=== PATIENT | male | born 1960 | race Caucasian/White ===

== ENCOUNTER 2018-05-26 16:08 | Outpatient (RCR) | payer OTHER, BC ==
--- NOTE | 2018-02-28 17:58 | PT INITIAL EVALUATION ---
MEDICAL DIAGNOSIS: Left TKA TREATMENT DIAGNOSIS: Left TKA, Lower Extremity Weakness, Abnormality of Gait DATE OF ONSET: 02/25/18 SUBJECTIVE: Yang is a 57 year old male presenting to physical therapy following left knee TKA on January,. Since the surgery pt reports feeling slowly better every day with pain improving. Pt uses CMP machine at home currently set to 6-0-80 with the goal to get to 10-0-90. Pt reports no fever or chills and has been icing his knee regularly. Pt would like to get back to recreational skiing, but has restrictions from his R knee which will likely need a TKA later on. REHAB PROBLEM LIST: Increased Pain Decreased ROM Impaired Bed Mobility Decreased Strength Impaired Transfers Decreased Endurance Decreased Balance Decreased Function Decreased ADL's Decreased Mobility Decreased Gait PREVIOUS MEDICAL HISTORY: See EMR OCCUPATION: Works at a bank. OBJECTIVE: Pt has post surgical dressing on with bandages covering sutures and gauze wrapped around knee. Pt is wearing B compression stockings at thigh high level. ROM: Knee ROM: R 0-5-130, L 0-20-70 Strength: LE MMT (R, L): Hip: flexion: 5/5, 3+/5, ext: 4+/5, 4-/5, abd: 5/5, 4- /5, add: 5/5, 4-/5. Knee: ext: 4/5, L not tested, flex: 5/5, L not tested. Ankle: DF: 5/5, 4+/5, PF: 5/5, 4-/5 Palpation: Incision not inspected at this time, but will be performed by PT at a later time. Special Tests: Pt unable to perform SLR. Gait: Pt ambulates with FWW with decreased stance phase on L LE and shortened stride with forward trunk lean. ASSESSMENT: Yang shows signs and symptoms consistent with recent L TKA. Physical therapy is indicated to address the above listed impairments to return pt to full function with ADL's and recreational activities. Short Term Goals In 3 weeks pt will increase L Knee ROM to 0-130 for improved functional mobility with ADL's. In 4 weeks pt will be able to perform a SLR on the L LE without quad lag for improved function with ADL's. In 6 weeks pt will increase L LE ROM to equal to that of the R for improved function with ADL's. In 6 weeks pt will be able to return to recreational activities such as skiing for without limitations from the L knee. Patient's Goals Get back to skiing, increase strength and gain ROM PLAN: Patient to be seen for Manual Therapy/STM/MET Strengthening/condition Ice/Heat Range of Motion Spinal Stabilization Ultrasound Stretching Iontophoresis Neuromuscular Re-ed Closed Chain Program Electrical Stim Posture/Body mechanics Gait Trg/Balance Trg Biofeedback Home Exercise Program Mech./Manual Traction Therapeutic Activities 3x/Week for 6 Weeks If you have any questions, comments, or concerns about this report or plan, please contact me at . Thank you, Gail Castellon, PT, DPT, CLT MTDD
--- NOTE | 2018-03-30 17:44 | PT PLAN OF CARE ---
Physician: Joe Batres MD Patient is being seen: 3x/Week Therapist: Gail Castellon, PT, DPT, CLT Medical Diagnosis: Left TKA Treatment Diagnosis: Left TKA, Lower Extremity Weakness, Abnormality of Gait Date of Onset: 02/25/18 Date of Initial Evaluation: 02/28/18 Date patient was last seen: 03/30/18 Number of treatments: 13 Number of cancellations/No shows: 1 INTERVENTIONS: Manual Therapy/STM/MET Strengthening/condition Ice/Heat Range of Motion Spinal Stabilization Ultrasound Stretching Iontophoresis Neuromuscular Re-ed Closed Chain Program Electrical Stim Posture/Body mechanics Gait Trg/Balance Trg Biofeedback Home Exercise Program Mech./Manual Traction Therapeutic Activities GOALS: In 3 weeks pt will increase L Knee ROM to 0-130 for improved functional mobility with ADL's. In 4 weeks pt will be able to perform a SLR on the L LE without quad lag for improved function with ADL's. In 6 weeks pt will increase L LE ROM to equal to that of the R for improved function with ADL's. In 6 weeks pt will be able to return to recreational activities such as skiing for without limitations from the L knee. PATIENT'S GOAL: Get back to skiing, increase strength and gain ROM Status of Patient's Goals: Not MET Patient Compliance: Poor Prognosis: Good Reasons for continuing therapy: At this time Yang shows little gains in knee ROM with loss of motion between each session secondary to poor compliance with HEP. PT continues to provide education on the importance of achieving ROM with little improvement over the last week. Multiple techniques for pt achieving end range were discussed, and demonstrated, with pt sent home with written instructions and pictures for the ones of his preference. It is my impression that if Yang does not take more initiative for gaining or maintaining ROM between sessions he will require manipulation under anesthesia in order to achieve functional mobility. Despite difficulty with mobility, pt does show improved muscular activation with improved hip and quad strength and stability. Pt remains ambulating on 2 crutches at this time secondary to lingering inflammation from decreased knee mobility. Further PT is indicated for this patient to continue progress towards functional goals. ROM: Knee ROM: R 0-5-130, L 0-3-105 Strength: LE MMT (R, L): Hip: flexion: 5/5, 4-/5, ext: 4+/5, 4-/5, abd: 5/5, 4- /5, add: 5/5, 4-/5. Knee: ext: 4/5, L not tested, flex: 5/5, L not tested. Ankle: DF: 5/5, 4+/5, PF: 5/5, 4-/5 Palpation: Incision not inspected at this time but will be at a later time. Special Tests: Pt is able to perform SLR with minimal quad lag. If you have any questions, please feel free to contact me at [phone]. Thank you, Gail Castellon, PT, DPT, CLT MTDD
--- NOTE | 2018-04-20 09:49 | PT PLAN OF CARE ---
Physician: Joe Batres MD Patient is being seen: 5x/Week Therapist: Gail Castellon, PT, DPT, CLT Medical Diagnosis: Left TKA Treatment Diagnosis: Left TKA, Lower Extremity Weakness, Abnormality of Gait Date of Onset: 02/25/18 Date of Initial Evaluation: 02/28/18 Date patient was last seen: 04/19/18 Number of treatments: 20 Number of cancellations/No shows: 1 INTERVENTIONS: Manual Therapy/STM/MET Strengthening/condition Ice/Heat Range of Motion Spinal Stabilization Ultrasound Stretching Iontophoresis Neuromuscular Re-ed Closed Chain Program Electrical Stim Posture/Body mechanics Gait Trg/Balance Trg Biofeedback Home Exercise Program Mech./Manual Traction Therapeutic Activities GOALS: In 3 weeks pt will increase L Knee ROM to 0-130 for improved functional mobility with ADL's. In 4 weeks pt will be able to perform a SLR on the L LE without quad lag for improved function with ADL's. In 6 weeks pt will increase L LE ROM to equal to that of the R for improved function with ADL's. In 6 weeks pt will be able to return to recreational activities such as skiing for without limitations from the L knee. PATIENT'S GOAL: Get back to skiing, increase strength and gain ROM Status of Patient's Goals: Not MET Patient Compliance: Poor Prognosis: Good Reasons for continuing therapy: Following recent manipulation on Wednesday04/15/18, Yang showed slight decreased mobility after having no treatment till Wednesday. Range of motion decreased from 4 degrees ext to 10 degrees ext. Following the last couple treatment sessions ROM has been regained within each visit, but continues to regress between visits with pt having poor compliance with HEP. Following continual education pt reported that he does not want to really push himself at home so his frequency of PT has been increased from 3x/Week to 5x/week for the next couple weeks to really focus on gaining ROM. Additionally pt frequently shows up late for his sessions resulting in only 30 minutes of treatment time or less. Further PT to continue to focus on gains in ROM with initiation of hip and ankle strengthening. ROM: Knee ROM: R 0-5-130, L 0-4-103 Strength: LE MMT (R, L): Hip: flexion: 5/5, 4-/5, ext: 4+/5, 4-/5, abd: 5/5, 4- /5, add: 5/5, 4-/5. Knee: ext: 4/5, L not tested, flex: 5/5, L not tested. Ankle: DF: 5/5, 4+/5, PF: 5/5, 4-/5 Palpation: Incision with poor mobility on distal portion but moderate mobility on proximal. No signs of redness or infection. Special Tests: Pt is able to perform SLR with minimal quad lag. If you have any questions, please feel free to contact me at [phone]. Thank you, Gail Castellon, PT, DPT, CLT MTDD
--- NOTE | 2018-05-11 17:22 | PT PLAN OF CARE ---
Physician: Joe Batres MD Patient is being seen: 3x/Week Therapist: Gail Castellon, PT, DPT, CLT Medical Diagnosis: Left TKA Treatment Diagnosis: Left TKA, Lower Extremity Weakness, Abnormality of Gait Date of Onset: 02/25/18 Date of Initial Evaluation: 02/28/18 Date patient was last seen: 05/11/18 Number of treatments: 30 Number of cancellations/No shows: 2 INTERVENTIONS: Manual Therapy/STM/MET Strengthening/condition Ice/Heat Range of Motion Spinal Stabilization Ultrasound Stretching Iontophoresis Neuromuscular Re-ed Closed Chain Program Electrical Stim Posture/Body mechanics Gait Trg/Balance Trg Biofeedback Home Exercise Program Mech./Manual Traction Therapeutic Activities GOALS: In 3 weeks pt will increase L Knee ROM to 0-130 for improved functional mobility with ADL's. In Progress In 4 weeks pt will be able to perform a SLR on the L LE without quad lag for improved function with ADL's. MET In 6 weeks pt will increase L LE strength to equal to that of the R for improved function with ADL's. In 6 weeks pt will be able to return to recreational activities such as skiing for without limitations from the L knee. PATIENT'S GOAL: Get back to skiing, increase strength and gain ROM Status of Patient's Goals: 1/4 MET, 3/4 In Progress Patient Compliance: Poor Prognosis: Good Reasons for continuing therapy: Yang continues to struggle with improvements in ROM however gains are slowly being made. Extension ROM remains the most limited for functional mobility with pt only able to achieve lacking 10 degrees AROM and lacking 2 degrees with overpressure. Flexion shows progressive improvements every session by a few degrees. Pt has maintained excellent strength throughout this entire process with good quad function and supporting musculature in the hip and ankle. Further PT to continue with progressive gains in ROM as well as functional strength for return to full function with ADL's and recreational activities. ROM: Knee ROM: R 0-5-130, L 0-2-115 Strength: LE MMT (R, L): Hip: flexion: 4+/5, 4/5, ext: 5/5, 5/5, abd: 5/5, 5-/5, add: 4+/5, 4+/5. Knee: ext: 4/5, 4+/5, flex: 5/5, 4+/5. Ankle: DF: 5/5, 5/5, PF: 5-/5, 4+/5 Palpation: Incision with good mobility throughout Special Tests: Pt is able to perform SLR without quad lag but with AROM maintained at 10 degrees throughout If you have any questions, please feel free to contact me at [phone]. Thank you, Gail Castellon, PT, DPT, CLT MTDD
== END 2018-05-29 ==
LOC: PT 16:08
PROVIDERS: ATTEND Orthopaedic Surgery
DX: Z47.1 Aftercare following joint replacement surgery (principal); Z96.652 Presence of left artificial knee joint; M62.81 Muscle weakness (generalized); R26.89 Other abnormalities of gait and mobility
CPT/HCPCS: 97161

== ENCOUNTER 2018-06-22 16:07 | Outpatient (RCR) | payer BC, OTHER ==
--- NOTE | 2018-05-30 17:30 | PT PLAN OF CARE ---
Physician: Joe Batres MD 3 month Business Office note Patient is being seen: 2-3x/week Therapist: Dee Recih PT Medical Diagnosis: Left TKA Treatment Diagnosis: Left TKA, Lower Extremity Weakness, Abnormality of Gait Date of Onset: 02/25/18 Date of Initial Evaluation: 02/28/18 Date patient was last seen: 05/30/18 Number of treatments: 37 Number of cancellations/No shows: 0 INTERVENTIONS: L TKA Therapeutic exercise, Manual therapy, HEP GOALS: In 3 weeks pt will increase L Knee ROM to 0-130 for improved functional mobility with ADL's. In Progress In 4 weeks pt will be able to perform a SLR on the L LE without quad lag for improved function with ADL's. MET In 6 weeks pt will increase L LE strength to equal to that of the R for improved function with ADL's. Progressing In 6 weeks pt will be able to return to recreational activities such as skiing for without limitations from the L knee. 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 He hasn't returned to skiing yet. O: ROM: L knee A/PROM: 8/3 - 110/117 degrees. Strength: L quad functional strength: single leg squat to 95 degrees. Palpation: Incision well healed. Gait: Mild L short LE gait. Mobility: L knee joint mobility WNL. A/P: Yang Sullivan continues to make gradual ROM gains and could benefit from continued PT to work to goals. If you agree, we'll continue 2-3x/week another 6 weeks. Thank you. JO
--- NOTE | 2018-06-24 07:37 | PT PLAN OF CARE ---
Physician: Joe Batres MD Patient is being seen: 2x/Week Therapist: Gail Castellon, PT, DPT, CLT Medical Diagnosis: Left TKA Treatment Diagnosis: Left TKA, Lower Extremity Weakness, Abnormality of Gait Date of Onset: 02/25/18 Date of Initial Evaluation: 02/28/18 Date patient was last seen: 06/22/18 Number of treatments: 43 Number of cancellations/No shows: 4 INTERVENTIONS: Manual Therapy/STM/MET Strengthening/condition Ice/Heat Range of Motion Spinal Stabilization Ultrasound Stretching Iontophoresis Neuromuscular Re-ed Closed Chain Program Electrical Stim Posture/Body mechanics Gait Trg/Balance Trg Biofeedback Home Exercise Program Mech./Manual Traction Therapeutic Activities GOALS: In 3 weeks pt will increase L Knee ROM to 0-130 for improved functional mobility with ADL's. MET In 4 weeks pt will be able to perform a SLR on the L LE without quad lag for improved function with ADL's. MET In 6 weeks pt will increase L LE strength to equal to that of the R for improved function with ADL's. MET In 6 weeks pt will be able to return to recreational activities such as skiing for without limitations from the L knee. MET PATIENT'S GOAL: Get back to skiing, increase strength and gain ROM Status of Patient's Goals: 1/4 MET, 3/4 In Progress Patient Compliance: Poor Prognosis: Good Reasons for discharge from therapy: Yang is to discharge from physical therapy at this time secondary to completion of 4/4 functional goals. Though AROM never reached full ext at 0 degrees, pt has equal to his contralateral limb in extension with no gait discrepancies. Yang shows excellent improvements in strength and functional movement with pt able to perform mock recreational activities with ease. Upon discharge pt is to continue with stretching to maintain ROM as well as HEP for maintenance of strength and function. ROM: Knee PROM: R 0-5-130, L 0-130, AROM: R 0-5/130, L 0-5-125 Strength: LE MMT (R, L): Hip: flexion: 5/5, 5-/5, ext: 5/5, 5/5, abd: 5/5, 5/5, add: 5/5, 5/5. Knee: ext: 5/5, 5/5, flex: 5/5, 5/5. Ankle: DF: 5/5, 5/5, PF: 5- /5, 5-/5 Palpation: Incision with good mobility throughout Special Tests: Pt is able to perform SLR without quad lag but with AROM maintained at 5 degrees throughout If you have any questions, please feel free to contact me at [phone]. Thank you, Gail Castellon, PT, DPT, CLT MTDD
== END 2018-06-22 18:00 | disposition home or self-care (01) ==
LOC: PT 16:07
PROVIDERS: ATTEND Orthopaedic Surgery
DX: Z47.1 Aftercare following joint replacement surgery (principal); M62.81 Muscle weakness (generalized); Z01.89 Encounter for other specified special examinations; M24.662 Ankylosis, left knee; Z96.652 Presence of left artificial knee joint; R26.89 Other abnormalities of gait and mobility; M17.0 Bilateral primary osteoarthritis of knee